=== PATIENT | male | born 1950 | race Caucasian/White ===

== ENCOUNTER → 2016-09-07 | Outpatient (CLI) | payer MEDICARE, OTHER ==
[~2016-09-07] MED LIST: CORTISPORI7.5 ML/BOT OP
[2016-09-07 10:47] LABS: BUN 13 mg/dL (7-18); PROSTATE-SPECIFIC AG SCREEEN 0.8 ng/mL (0.0-4.0)
[2016-09-07 11:05] LABS: GFR (ESTIMATED) 61 ML/MIN (>60)
== END ==
LOC: LAB 08:55
PROVIDERS: Family Medicine
DX: E78.5 Hyperlipidemia, unspecified (principal); I10 Essential (primary) hypertension; N40.0 Benign prostatic hyperplasia without lower urinary tract symptoms; Z12.5 Encounter for screening for malignant neoplasm of prostate
CPT/HCPCS: G0103

== ENCOUNTER → 2017-03-19 | Outpatient (CLI) | payer MEDICARE, OTHER ==
--- NOTE | 2017-03-19 12:17 | RADIOLOGY REPORT PS360 ---
MRI-UP EXT ANY JNT W/O-LT MRI left shoulder HISTORY: PAIN IN LEFT SHOULDER3 months left shoulder pain limited range of motion with raising arm. Sharp pain shortness constant. Patient Age: 66 years: Male Ordering Physician: Nathan Gardner MD TECHNIQUE: Multiplanar multisequence imaging 1.5 T MR. COMPARISON :None FINDINGS Full-thickness Rotator cuff tear involving supraspinatus tendon: Supraspinatus Tendon: Full-thickness tear defect evident.. Approximate 14 mm AP full-thickness tear/defect. This full-thickness tear involves attachment & critical zone region of supraspinatus tendon. Up to ~15 mm tendon retraction associated on coronal view. Joint effusion. Joint fluid seen passing through this full-thickness RCT defect into the subdeltoid/ subacromial bursa.. Subscapularis tendon. Upper normal signal at the insertion suggestive of mild tendinopathy here... InfraspinatusTendon. No full-thickness tear but there is slight increased signal at the undersurface of the infraspinatus tendon and insertion suggestive of tendinopathy. Cannot exclude partial tear. Increased signal at inferior aspect infraspinatus on sagittal images 6,-9.. Just beneath this same region there are Cystic areas, numerous insertional erosions & osseous irregularities at posterior superior humeral head- beneath infraspinatus tendon insertion. One of the more prominent focal cystic area measuring 9 mm is seen axial image 11. . There is also some mild hypertrophic changes likely the greater tuberosity. Plain film correlation be helpful here. \ Biceps tendon is poorly delineated. Suggestion a small biceps tendon remains in place, but cannot exclude partial tear here. Osseous glenoid is intact. The anterior and posterior glenoid labrum appear intact. Glenohumeral joint appears satisfactory. Middle glenohumeral ligament satisfactory.. Mild/moderate AC joint arthropathy. The acromion with minimal spurring its tip but overall adequate subacromial space measuring over 7.5 mm at the anterior margin of acromion on sagittal image. IMPRESSION 1. Rotator cuff tear: Full-thickness RCT defect at Supraspinatus Tendon; with mild/moderate tendon retraction. This Supraspinatus tear defect measuring ~15 cm.. 2. Small joint effusion, with fluid passing through this full-thickness supraspinatus tendon tear defect into the subdeltoid subacromial bursa 3. Infraspinatus tendon: slight increase signal throughout inferior reflecting infraspinatus tendinopathy. Difficult to exclude mild undersurface partial tear here. 4. Insertional erosions at infraspinatus insertion. Notable Cortical osseous irregularities associated here beneath its insertion throughout posterior/superior aspect humeral head 5. Minor subscapularis tendinopathy near insertion.. 6.. Biceps tendon not well visualized. Likely within intact but cannot exclude prior interstitial or partial tear 7.. Moderate AC joint arthropathy .
== END ==
LOC: RAD 07:57
DX: M25.512 Pain in left shoulder (principal)